=== PATIENT | male | born 1970 | race African-American/Black ===

== ENCOUNTER 2018-01-13 12:55 | Inpatient (IN) | payer BC ==
[~2018-01-13] VITALS: Ht 172.7 cm; Wt 89.6 kg
[2018-01-13] MEDS ORDERED: SODIUM CHLORIDE 0.9% 1,000 ML IV ONE (13:32)
[2018-01-13 14:47] LABS: BASOPHILS % 0.5 % (0.0-2.0); EOSINOPHILS % 0.2 % (0.0-5.0); HEMATOCRIT. 31.4 % (42.0-52.0); HEMOGLOBIN. 10.3 g/dL (14.0-18.0); LYMPHOCYTES % 8.5 % (20.0-50.0); MEAN CORPUSCULAR HEMOGLOBIN 28.3 pg (28.0-32.0); MEAN CORPUSCULAR VOLUME 86.1 fL (80.0-94.0); MEAN PLATELET VOLUME 8.3 fl (7.4-10.4); MONOCYTES % 8.2 % (2.0-8.0); NEUTROPHILS % 82.6 % (40.0-76.0); PLATELET 195 x1000/uL (130-400); RED BLOOD CELL COUNT 3.65 mill/uL (4.7-6.1); RED CELL DISTRIBUTION WIDTH 15.1 % (11.6-14.6)
[2018-01-13 14:51] LABS: CHLORIDE 113 mEq/L (98-107)
[2018-01-13 14:56] LABS: INR 1.1; PARTIAL THROMBOPLASTIN TIME 25.4 sec (23.4-31.0); PROTHROMBIN TIME 11.4 sec (9.1-11.1)
[2018-01-13 14:58] LABS: TOTAL IRON BINDING CAPACITY 112 ug/dL (250-450)
[2018-01-13 15:29] LABS: CLARITY URINE CLEAR (CLEAR); COLOR URINE YELLOW (YELLOW); KETONES URINE NEGATIVE (NEGATIVE); LEUKOCYTE ESTERASE URINE 1+ (NEGATIVE); NITRITE URINE NEGATIVE (NEGATIVE); OCCULT BLOOD URINE NEGATIVE (NEGATIVE); PROTEIN URINE NEGATIVE (NEGATIVE); SPECIFIC GRAVITY URINE 1.016 (1.005-1.030); UROBILINOGEN URINE 0.2 E.U./dL (0.2-1.0)
[2018-01-13] MEDS ORDERED: SODIUM CHL 0.45% + KCL 20MEQ/L 1,000 ML IV SCH (16:00)
[2018-01-13] MEDS ORDERED: LEVOFLOXACIN 750MG PREMIX 150 ML IV NR (17:56)
[2018-01-13] MEDS ORDERED: SODIUM CHL 0.45% + KCL 20MEQ/L 1,000 ML IV NR (20:00)
[2018-01-13 20:35] VITALS: BP 110/72
[2018-01-13] MEDS ORDERED: TAMS-11 MT (22:30)
[2018-01-13] MEDS ORDERED: SULF1TAB47 MT (22:30)
[2018-01-13] MEDS ORDERED: AMOX-424 MT (22:30)
[2018-01-13] MEDS ORDERED: CALC-1042 MT (22:30)
[2018-01-13] MEDS ORDERED: FERR-71 MT (22:30)
[2018-01-13] MEDS ORDERED: CYAN25004 SL (22:30)
[2018-01-13] MEDS ORDERED: ASCO-339 MT (22:30)
[2018-01-13] MEDS ORDERED: ASCO-316 PO (22:30)
[2018-01-14] VITALS: BP 101/62
[2018-01-14 04:00] VITALS: BP 98/65
[2018-01-14 12:00] VITALS: BP 99/68
[2018-01-14] MEDS: TAMSULOSIN HCL 0.4MG SR CAPSULE PO SCH (13:01)
[2018-01-14 13:22] LABS: HEMATOCRIT. 29.5 % (42.0-52.0); HEMOGLOBIN. 9.6 g/dL (14.0-18.0); MEAN CORPUSCULAR HEMOGLOBIN 28.1 pg (28.0-32.0); MEAN CORPUSCULAR VOLUME 86.9 fL (80.0-94.0); PLATELET 190 x1000/uL (130-400); RED CELL DISTRIBUTION WIDTH 15.4 % (11.6-14.6)
[2018-01-14 13:35] LABS: CHLORIDE 113 mEq/L (98-107)
[2018-01-14 13:43] LABS: PHOSPHORUS 2.7 mg/dL (2.5-4.9)
[2018-01-14 14:00] LABS: PLATELET ESTIMATE NORMAL
[2018-01-14 14:07] LABS: VITAMIN B12 SERUM >2000 pg/mL pg/mL (211-911)
[2018-01-14 16:00] VITALS: BP 101/56
[2018-01-14] MEDS ORDERED: LEVOFLOXACIN 500MG PREMIX 100 ML IV SCH (17:00)
[2018-01-14] MEDS ORDERED: LEVOFLOXACIN 500MG PREMIX 100 ML IV ONE (18:00)
[2018-01-14 18:07] LABS: CHLORIDE 115 mEq/L (98-107)
[2018-01-14 18:13] LABS: PHOSPHORUS 2.8 mg/dL (2.5-4.9)
[2018-01-14 20:00] VITALS: BP 109/72
[2018-01-15] VITALS: BP 105/57
[2018-01-15 04:00] VITALS: BP 108/74
[2018-01-15 08:00] VITALS: BP 102/63
[2018-01-15] MEDS: TAMSULOSIN HCL 0.4MG SR CAPSULE PO SCH (08:17)
[2018-01-15 11:26] VITALS: BP 105/63
== END 2018-01-15 12:25 | disposition home or self-care (01) | DRG 871 ==
LOC: ER 14:06 → EDBEDREQ 15:04 → ENRESERV 20:00 → 6WST 20:40
PROVIDERS: ADMIT Internal Medicine Nephrology; ATTEND Internal Medicine Nephrology
DX: A41.9 Sepsis, unspecified organism (principal); E43 Unspecified severe protein-calorie malnutrition; N39.0 Urinary tract infection, site not specified; K50.90 Crohn's disease, unspecified, without complications; I95.1 Orthostatic hypotension; N18.9 Chronic kidney disease, unspecified; E86.9 Volume depletion, unspecified; N40.1 Benign prostatic hyperplasia with lower urinary tract symptoms; K04.7 Periapical abscess without sinus; R39.15 Urgency of urination; W19.XXXA Unspecified fall, initial encounter; Y93.89 Activity, other specified; D50.0 Iron deficiency anemia secondary to blood loss (chronic); Y92.008 Other place in unspecified non-institutional (private) residence as the place of occurrence of the external cause; Z79.899 Other long term (current) drug therapy; Z80.0 Family history of malignant neoplasm of digestive organs; Z98.84 Bariatric surgery status; Z88.8 Allergy status to other drugs, medicaments and biological substances; Z68.30 Body mass index [BMI] 30.0-30.9, adult
CPT/HCPCS: 36415; 71045; 74176; 80048; 82270; 82378; 82607; 82746; 83540; 83550; 83605; 83880; 84100; 84484; 85007; 85027; 85044; 86850; 86900; 86920; 93005; 96361; 96365; 96366; 99285; J1956; J3480; J7030; J7050